=== PATIENT | male | born 1955 | race Caucasian/White ===

== ENCOUNTER 2022-09-02 05:44 | Observation (INO) ==
[~2022-09-02 05:44] MED LIST: BUPIVACAINE **LIPOSOME/PF 13.3 MG/ML (266MG/ 20ML) VIAL (RESTRICTED) INFIL ONE; Tranexamic Acid 1,000 MG in NS 0.9% 50 ML IV ONE
[2022-09-02] MEDS ORDERED: Lactated Ringers 1000 ml BAG 1,000 ML IV SCH (06:00)
[2022-09-02] MEDS ORDERED: Buffered Lidocaine 1% SYRIN 1 ml INTRADERM ONE (06:00)
[2022-09-02] MEDS ORDERED: ceFAZolin 2 GM in NS PREMIX 2 GM/100 ML BAG IVPB ONE (06:10)
[2022-09-02] MEDS ORDERED: Bupivacaine 0.25% EPI 200,000 30 ML SDV ONE (07:06)
[2022-09-02] MEDS ORDERED: Propofol 10 MG/ML 20 ML BTL ONE ×3 (07:15→10:15)
[2022-09-02] MEDS ORDERED: Lidocaine 2% PF 5 ML VIAL ONE (07:15)
[2022-09-02] MEDS ORDERED: fentaNYL 100 mcg/2 ml 50 MCG/ML VIAL ONE (07:16)
[2022-09-02] MEDS ORDERED: Midazolam 2 mg/2 ml VIAL 1 mg/ml 2 ml VIAL (2 mg) ONE (07:41)
[2022-09-02] MEDS ORDERED: BUPIVACAINE **LIPOSOME/PF 13.3 MG/ML (266MG/ 20ML) VIAL (RESTRICTED) INFIL ONE (08:00)
[2022-09-02] MEDS ORDERED: Tranexamic Acid 1,000 MG in NS 0.9% 50 ML IV ONE ×2 (08:00→10:00)
[2022-09-02] MEDS ORDERED: Phenylephrine 40 mcg/mL 10mL (400mcg) SYRINGE ONE (08:01)
[2022-09-02] MEDS ORDERED: Naloxone 0.4 mg VIAL 0.4 mg/ml 1 ml VIAL IV PRN (08:19)
[2022-09-02] MEDS ORDERED: Ondansetron 4 mg VIAL 2 MG/ML 2 ml VIAL IV PRN ×2 (08:19→10:35)
[2022-09-02] MEDS ORDERED: HYDROmorphone 1 MG/1 ML SYRINGE IV PRN (08:19)
[2022-09-02] MEDS ORDERED: fentaNYL 100 mcg/2 ml 50 MCG/ML VIAL IV PRN (08:19)
[2022-09-02] MEDS ORDERED: Acetaminophen IV 1 GM/100ML 1,000 MG/100 ML BAG IV ONE (08:39)
[2022-09-02] MEDS ORDERED: Ondansetron 4 mg VIAL 2 MG/ML 2 ml VIAL ONE (09:33)
[2022-09-02] MEDS ORDERED: Ondansetron ODT 4 mg TAB 4 MG TAB PO PRN (10:35)
[2022-09-02] MEDS ORDERED: Lactulose 30 ml UDC PO PRN (10:35)
[2022-09-02] MEDS ORDERED: Magnesium Hydroxide LIQ 30 ML UDC PO PRN (10:35)
[2022-09-02] MEDS ORDERED: Morphine 2 MG/ML SYRINGE IV PRN (10:35)
[2022-09-02] MEDS: Lactated Ringers 1000 ml BAG 1,000 ML IV SCH ×2 (12:54→22:59)
[2022-09-02] MEDS: ceFAZolin 1 GM ADVAN 1 GM in NS 0.9% 50 ML 50 ML IVPB SCH (17:08)
[2022-09-02] MEDS: Magnesium Hydroxide LIQ 30 ML UDC PO SCH (21:19)
[2022-09-03] MEDS: ceFAZolin 1 GM ADVAN 1 GM in NS 0.9% 50 ML 50 ML IVPB SCH ×2 (01:12→10:23)
[2022-09-03 06:07] LABS: Hematocrit 40 % (42-52); Hemoglobin 13.5 g/dL (14.0-18.0); Mean Platelet Volume 9.6 fL (7.4-10.4); Platelet Count 146 10^3/uL (150-450)
[2022-09-03 06:25] LABS: Calcium 8.6 mg/dL (8.6-10.3); Creatinine, Serum 0.82 mg/dL (0.67-1.17); Potassium 4.2 mmol/L (3.5-5.0); eGFR CKD-EPI 95.7 (>60)
[2022-09-03] MEDS ORDERED: Vitamin THERAPEUTIC TAB PO SCH (09:00)
[2022-09-03] MEDS: Magnesium Hydroxide LIQ 30 ML UDC PO SCH (10:27)
[2022-09-03 12:07] VITALS: BP 128/74
== END 2022-09-03 12:45 | disposition home or self-care (01) ==
LOC: SSU 05:44 → OR 05:44
PROVIDERS: ADMIT Orthopaedic Surgery Sports Medicine; ATTEND Orthopaedic Surgery Sports Medicine